=== PATIENT | male | born 1985 | race American Indian/Alaskan Native ===

== ENCOUNTER 2019-12-20 17:41 | Emergency (ER) | payer SELFPAY ==
--- NOTE | 2019-12-20 18:19 | XRay Report ---
Right shoulder 2 views INDICATION: Right shoulder pain IMPRESSION: Severe anterior dislocation involving the humeral head with respect to the glenoid. There is prominent Hill-Sachs deformity. Cannot exclude underlying anterior-inferior glenoid fracture by t he provided views:. Signer Name: Sandip Parkinson MD Signed: 12/20/2019 6:15 PM Workstation Name: [id number]
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
[2019-12-20] MEDS ORDERED: ETOMIDATE 20 MG/10 ML INJ IV ONE ×2 (18:20→18:22)
--- NOTE | 2019-12-20 19:00 | XRay Report ---
RIGHT SHOULDER ONE VIEW INDICATION / CLINICAL INFORMATION: Status post reduction COMPARISON: None available. FINDINGS: BONES / JOINT(S): There has been successful reduction of the dislocated right humerus. The alignment of the joint appears satisfactory. SOFT TISSUES: No significant abnormality. ADDITIONAL FINDINGS: None. Signer Name: Benson Cox MD Signed: 12/20/2019 6:55 PM Workstation Name: [id number]
[2019-12-20 19:46] VITALS: BP 119/75
== END 2019-12-20 20:25 | disposition home or self-care (01) ==
LOC: ED 17:41
DX: S43.004A Unspecified dislocation of right shoulder joint, initial encounter (principal); F17.200 Nicotine dependence, unspecified, uncomplicated; F12.10 Cannabis abuse, uncomplicated; Z79.899 Other long term (current) drug therapy; W18.30XA Fall on same level, unspecified, initial encounter; Y93.89 Activity, other specified; Y92.89 Other specified places as the place of occurrence of the external cause; Y99.8 Other external cause status

== ENCOUNTER 2020-05-28 19:09 | Emergency (ER) | payer SELFPAY ==
[2020-05-28 19:47] VITALS: BP 126/62
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
== END 2020-05-28 20:33 | disposition home or self-care (01) ==
LOC: ED 19:09
DX: S16.1XXA Strain of muscle, fascia and tendon at neck level, initial encounter (principal); S39.012A Strain of muscle, fascia and tendon of lower back, initial encounter; Z79.899 Other long term (current) drug therapy; V49.59XA Passenger injured in collision with other motor vehicles in traffic accident, initial encounter; Y92.410 Unspecified street and highway as the place of occurrence of the external cause; Y93.89 Activity, other specified; Y99.8 Other external cause status
CPT/HCPCS: 99282